=== PATIENT | female | born 1955 | race American Indian/Alaskan Native ===

== ENCOUNTER 2016-10-29 08:47 | Emergency (ER) | payer MEDICAID ==
[2016-10-29 09:23] LABS: Eosinophils % (Auto) 1.1 % (0.0-4.3); Hematocrit 32.8 % (30.3-42.9); Hemoglobin 10.9 gm/dl (10.1-14.3); Mean Corpuscular HGB Conc 33 % (30-34); Mean Corpuscular Hemoglobin 32 pg (28-32); Mean Corpuscular Volume 97 fl (79-97); Platelet Count 350 K/mm3 (140-440); Red Blood Count 3.38 M/mm3 (3.65-5.03); Red Cell Distribution Width 16.4 % (13.2-15.2); White Blood Count 5.8 K/mm3 (4.5-11.0)
[2016-10-29 09:39] LABS: Anion Gap 17 mmol/L; BUN/Creatinine Ratio 25.55; Blood Urea Nitrogen 23 mg/dL (7-17); Calcium 9.3 mg/dL (8.4-10.2); Carbon Dioxide 19 mmol/L (22-30); Chloride 103.8 mmol/L (98-107); Glucose 92 mg/dL (65-100); Potassium 3.7 mmol/L (3.6-5.0); Sodium 136 mmol/L (137-145)
[2016-10-29] MEDS ORDERED: CATAPRES PO ONE (10:05)
--- NOTE | 2016-10-29 11:03 | XRay Report ---
PA and lateral chest: Chest pain. There is a slightly coarse overall interstitial pattern but no focal mass, infiltrate, effusion. The heart is normal in size. The aorta is slightly tortuous with calcification. The findings are unchanged compared to prior exam in February 2012. Impression: Mild chronic lung changes. No acute findings.
--- NOTE | 2016-10-29 11:33 | Emergency Department Report ---
HPI - General Chief Complaint: High BP Time Seen by Provider: 10/29/16 11:03 - HPI HPI: 61-year-old female with a history of hypertension who has not been on her medication presents to ED today as she was sent from the GI doctor due to elevated blood pressure. Patient is able with his sister who states they went in for colonoscopy at that GI this morning when they would not perform the procedure to the patient's blood pressure being high. So she was sent to the ER to be assessed. She states she has been out of her medication and has not taken it for a while. She states she has an appointment with her primary care doctor next week. Patient denies fever/chills/nausea/vomiting/dizziness/headache/blurred vision/ chest pain/shortness of breath or any other problems. ED Past Medical Hx - Past Medical History Previous Medical History?: Yes Hx Hypertension: Yes Hx Heart Attack/AMI: No Hx Congestive Heart Failure: No Hx Diabetes: No Hx Deep Vein Thrombosis: No Hx Pulmonary Embolism: No Hx Liver Disease: No Hx Renal Disease: No Hx Sickle Cell Disease: No Hx Arthritis: Yes Hx Seizures: No Hx Kidney Stones: No Hx Asthma: No Hx COPD: No Hx Tuberculosis: No Hx Dementia: No Hx HIV: Yes - Surgical History Hx Coronary Stent: No Hx Pacemaker: No Hx Internal Defibrillator: No - Social History Smoking Status: Current Every Day Smoker Substance Use Type: None - Medications Home Medications: Home Medications Medication Instructions Recorded Confirmed Last Taken Type Lisinopril/Hydrochlorothiazide 1 tab PO QDAY #30 tablet 10/29/16 Unknown Rx [Zestoretic 10-12.5 mg] ED Review of Systems ROS: Stated complaint: HBP Other details as noted in HPI Constitutional: denies: chills, fever Eyes: denies: eye pain, eye discharge, vision change ENT: denies: ear pain, throat pain Respiratory: denies: cough, shortness of breath, wheezing Cardiovascular: denies: chest pain, palpitations Endocrine: no symptoms reported Gastrointestinal: denies: abdominal pain, nausea, vomiting, diarrhea, hematochezia Genitourinary: denies: urgency, dysuria, frequency, hematuria, discharge, abnormal menses, dyspareunia Musculoskeletal: denies: back pain, joint swelling, arthralgia, myalgia Skin: denies: rash, lesions Neurological: denies: headache, weakness, numbness, paresthesias, confusion, abnormal gait, vertigo Psychiatric: denies: anxiety, depression Hematological/Lymphatic: denies: easy bleeding, easy bruising Physical Exam - Physical Exam Vital Signs: Vital Signs 10/29/16 10/29/16 10/29/16 08:53 10:16 11:09 Temperature 98.3 F Pulse Rate 67 67 75 Respiratory 20 20 Rate Blood Pressure 211/110 211/110 Blood Pressure 154/90 [Right] O2 Sat by Pulse 97 97 Oximetry Physical Exam: GENERAL: Alert and oriented x3, no apparent distress, Normal Gait, atraumatic. HEAD: Head is normocephalic and a-traumatic. EYES: Extra ocular muscles are intact. Pupils are equal, round, and reactive to light and accommodation. MOUTH:Mouth is well hydrated and without lesions. Patent airways. NECK: Supple. Non edematous, No carotid bruits. No lymphadenopathy or thyromegaly. LUNGS: Symetrical with respiration, No wheezing, no rales or crackles, CTAB. HEART: S1, S2 present, regular rate and rhythm without murmur, no rubs, no gallops. ABDOMEN: No organomegaly was noted,Positive bowel sounds, soft, and non- distended. . Nontender to palpation on all Quadrants, NO CVA tenderness. EXTREMITIES/MUSCULOSKELETAL: No cyanosis, clubbing, rash, lesions or edema. Full ROM bilaterally. UE/LE Pulses 2+ bilaterally. LE and UE 5+ strength bilaterally NEUROLOGIC: No focal Deficit, Cranial nerves II through XII are grossly intact. No loss of sensation, SKIN: Warm and dry, No lesions, No ulceration or induration present. ED Course Vital Signs 10/29/16 10/29/16 10/29/16 08:53 10:16 11:09 Temperature 98.3 F Pulse Rate 67 67 75 Respiratory 20 20 Rate Blood Pressure 211/110 211/110 Blood Pressure 154/90 [Right] O2 Sat by Pulse 97 97 Oximetry ED Medical Decision Making - Lab Data Result diagrams: 10/29/16 09:09 10/29/16 09:09 - Medical Decision Making 61-year-old female presents with uncontrolled hypertension. ED course: Patient received clonidine 0.2 mg. CBC, BMP, troponin, chest x-ray urinalysis ordered. All labs within normal limits. Chest x-ray normal Patient was unable to urinate in her ED stay, she tried for about an hour. Due to normal labs no urinary needed. Urinalysis will not [employer]. Patient is asymptomatic and has not taken her blood pressure medication for a while. I discharged patient home on blood pressure medication and follow-up with her primary care physician. Patient is alert and oriented 3. Patient is in no acute respiratory distress. 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 Patient's sister states she has appointment for next Thursday with her primary care physician. Discussed importance importance of taking medication daily for her blood pressure. Case was discussed with my attending Dr. Jackson who agrees with management Ppatient can be discharged home Critical care attestation.: If time is entered above; I have spent that time in minutes in the direct care of this critically ill patient, excluding procedure time. ED Disposition Clinical Impression: Uncontrolled hypertension Disposition: DISCHARGED TO HOME OR SELFCARE Is pt being admited?: No Does the pt Need Aspirin: No Condition: Stable Instructions: Hypertension (ED) Additional Instructions: Keep your follow-up appointment which her primary care doctor for Thursday, November 05 If any symptoms arise return to ED. Prescriptions: Lisinopril/Hydrochlorothiazide [Zestoretic 10-12.5 mg] 1 tab PO QDAY #30 tablet Referrals: PRIMARY CARE, [Primary Care Provider] - 3-5 Days Forms: Accompanied Note, Work/School Release Form(ED) Time of Disposition: 12:30
[2016-10-29 12:22] VITALS: BP 159/89
== END 2016-10-29 12:40 | disposition home or self-care (01) ==
LOC: ED 08:47
DX: I10 Essential (primary) hypertension (principal); M19.90 Unspecified osteoarthritis, unspecified site; F17.200 Nicotine dependence, unspecified, uncomplicated
CPT/HCPCS: 36415; 71020; 80048; 82140; 84484; 85025; 93005; 93010; 99284